=== PATIENT | male | born 1990 | race Caucasian/White ===

== ENCOUNTER 2025-02-11 11:51 | Emergency (ER) | payer SELFPAY ==
[~2025-02-11 11:51] MED LIST: Iopamidol 370 76% 100 ML VIAL ONE
[2025-02-11 13:06] LABS: #Basophils Less than 0.03 10x3/uL (0.0-0.2); #Eosinophils 0.03 10x3/uL (0.0-0.5); #Monocytes 0.88 10x3/uL (0.0-1.1); #Neutrophils 8.48 10x3/uL (1.5-8.4); %Basophils 0.2 % (0.0-2.0); %Eosinophils 0.3 % (0.0-6.0); %Lymphocytes 14.3 % (18.0-47.0); %Monocytes 8.0 % (0.0-10.0); %Neutrophils 76.7 % (40.0-75.0); Hematocrit 40.8 % (38.8-50.0); Hemoglobin 13.0 g/dL (13.5-17.5); Mean Corpuscular Hemoglobin 29.3 pg (27.0-33.0); Mean Corpuscular Volume 91.9 fL (81.2-95.1); Platelet Count 226 10x3/uL (150-450); Red Blood Cell (RBC) Count 4.44 10x6/uL (4.32-5.72); White Blood Cell (WBC) Count 11.04 10x3/uL (3.5-10.5)
[2025-02-11 13:20] LABS: Acetaminophen Less than 10 mcg/mL (Less than 10); Lipase 29 U/L (8-78); Magnesium 1.8 mg/dL (1.6-2.6); Salicylate Less than 8.0 mg/dL (Less than 8.0)
[2025-02-11 13:22] LABS: ALT (SGPT) 50 U/L (Less than 45); AST (SGOT) 33 U/L (11-34); Albumin 4.3 g/dL (3.1-4.5); Alkaline Phosphatase 100 U/L (40-110); Anion Gap 12 mmol/L (10-20); BUN (Urea Nitrogen) 13 mg/dL (8.9-20.6); Bilirubin, Total 0.4 mg/dL (0.3-1.2); CK (CPK) 237 U/L (30-200); Calc. Creatinine Clearance 0 mL/min (70-130); Calcium 9.2 mg/dL (7.8-10.44); Carbon Dioxide 27 mmol/L (22-29); Chloride 104 mmol/L (98-107); Globulin 3.3 g/dL (2.4-3.5); Glucose 104 mg/dL (70-105); Potassium 3.4 mmol/L (3.5-5.1); Sodium 140 mmol/L (136-145)
[2025-02-11 17:34] LABS: Cocaine Metabolite Screen Negative (Negative); THC/Cannabinoid Screen Negative (Negative); Tricyclic Screen Negative (Negative)
== END 2025-02-11 15:02 | disposition home or self-care (01) ==
LOC: CSHERS 11:51
DX: E86.0 Dehydration (principal); F17.210 Nicotine dependence, cigarettes, uncomplicated; Y04.2XXA Assault by strike against or bumped into by another person, initial encounter
CPT/HCPCS: 36415; 70450; 70486; 71260; 72125; 74177; 80053; 80306; 80307; 82550; 83605; 83690; 83735; 85025; 96360; Q9967

== ENCOUNTER 2025-02-12 17:15 | Emergency (ER) | payer SELFPAY ==
[2025-02-12 20:19] LABS: #Basophils Less than 0.03 10x3/uL (0.0-0.2); #Eosinophils 0.06 10x3/uL (0.0-0.5); #Monocytes 0.93 10x3/uL (0.0-1.1); #Neutrophils 4.76 10x3/uL (1.5-8.4); %Basophils 0.2 % (0.0-2.0); %Eosinophils 0.7 % (0.0-6.0); %Lymphocytes 28.9 % (18.0-47.0); %Monocytes 11.4 % (0.0-10.0); %Neutrophils 58.4 % (40.0-75.0); Hematocrit 41.6 % (38.8-50.0); Hemoglobin 13.9 g/dL (13.5-17.5); Mean Corpuscular Hemoglobin 29.9 pg (27.0-33.0); Mean Corpuscular Volume 89.5 fL (81.2-95.1); Platelet Count 233 10x3/uL (150-450); Red Blood Cell (RBC) Count 4.65 10x6/uL (4.32-5.72); White Blood Cell (WBC) Count 8.16 10x3/uL (3.5-10.5)
[2025-02-12 20:21] LABS: Glucose, Urine (Dipstick) Normal (Negative); Leukocyte Negative (Negative); Protein, Urine (Dipstick) Negative (Neg-Trace); Specific Gravity, Urine 1.005 (1.005-1.030)
[2025-02-12 20:28] LABS: CAUTI Indications for Culture Alt mental st,lethar; RBC/HPF None Seen HPF (0-3); Urine Culture Reflex No No; WBC/HPF None Seen HPF (0-3)
[2025-02-12 20:30] LABS: Cocaine Metabolite Screen Negative (Negative); THC/Cannabinoid Screen Negative (Negative); Tricyclic Screen Negative (Negative)
[2025-02-12 20:35] LABS: ALT (SGPT) 37 U/L (Less than 45); AST (SGOT) 26 U/L (11-34); Acetaminophen Less than 10 mcg/mL (Less than 10); Albumin 4.1 g/dL (3.1-4.5); Alkaline Phosphatase 101 U/L (40-110); Anion Gap 12 mmol/L (10-20); BUN (Urea Nitrogen) 10 mg/dL (8.9-20.6); Bilirubin, Total 0.3 mg/dL (0.3-1.2); Calc. Creatinine Clearance 0 mL/min (70-130); Calcium 9.1 mg/dL (7.8-10.44); Carbon Dioxide 28 mmol/L (22-29); Chloride 103 mmol/L (98-107); Globulin 3.3 g/dL (2.4-3.5); Glucose 83 mg/dL (70-105); Potassium 3.4 mmol/L (3.5-5.1); Salicylate Less than 8.0 mg/dL (Less than 8.0); Sodium 140 mmol/L (136-145)
== END 2025-02-12 23:06 | disposition left against medical advice (07) ==
LOC: CSHERS 17:15
DX: R27.0 Ataxia, unspecified (principal); F17.210 Nicotine dependence, cigarettes, uncomplicated
CPT/HCPCS: 70496; 70498; 80164; 80177; 80185; 80306; 80307; 81001